=== PATIENT | female | born 1970 | race Caucasian/White ===

== ENCOUNTER → 2018-01-14 | Day surgery (SDC) | payer OTHER ==
[~2018-01-14] VITALS: Ht 162.6 cm; Wt 125.6 kg
[~2018-01-14] MED LIST: HYDROCHLOROTHIA25 M1 PO; LEVOTHYROXINE100 MC1 PO; LOPRESSOR50 M1 PO; MAGNESIUM400 M1 PO
[2018-01-14 07:43] LABS: ABSOLUTE BASOPHIL COUNT 0 /CUMM (0.0-0.2); ABSOLUTE EOSINOPHIL COUNT 0.4 /CUMM (0.0-0.7); ABSOLUTE GRANULOCYTE CT 4.3 /CUMM (1.4-6.5); ABSOLUTE LYMPH COUNT 2.8 /CUMM (1.2-3.4); ABSOLUTE MONOCYTE COUNT 0.6 /CUMM (0.10-0.60); BASOPHIL % 0.5 % (0.0-2.0); EOSINOPHIL % 4.6 % (0-5); GRANULOCYTE % 53.3 % (42.2-75.2); HEMATOCRIT 36.3 % (37-47); MEAN CORPUSCULAR HGB 29.2 PG (27.0-31.0); MEAN CORPUSCULAR HGB CONC 33.6 G/DL (33.0-37.0); MEAN CORPUSCULAR VOLUME 86.9 FL (81.0-99.0); MEAN PLATELET VOLUME 7.4 FL (7.4-10.4); PLATELET COUNT 312 /CUMM (130-400); RBC DISTRIBUTION WIDTH 15.2 % (11.5-14.5); RED BLOOD CELL CT 4.18 /CUMM (4.20-5.40); WHITE BLOOD CELL COUNT 8.1 /CUMM (4.8-10.8)
[2018-01-14 07:52] LABS: PT 11.7 SEC (9.4-12.5); PTT 26 SEC (25-37)
--- NOTE | 2018-01-14 11:30 | Operative Report ---
Operative/Inv Procedure Report Surgery Date: 01/14/18 Name of Procedure: Laparoscopic's tubal sterilization Pre-Operative Diagnosis: Multiparity Post-Operative Diagnosis: Same Estimated Blood Loss: 50ml to 100ml Surgeon/Grouter Helper: Lucia Stevens MD Anesthesia: general endotracheal tube, block Operative/Procedure Note Note: Gen. patient was taken the operating room placed on position after adequate induction general anesthesia tracheal tube patient placed in dorsolithotomy position the vagina from dorsal fashion bladder was catheterized examination under anesthesia performed at this point a single-tooth tenaculum was placed on the Intralipid cervix on the Rivas cannula was left in place surgeon regowned and gloved abdominal part case at the level of the umbilicus a stab incision was made to allow for the entry of Veress needle the abdomen was insufflated possibly 4 L of CO2 to liver edge dullness at which point the Veress needle was removed a 10 mm trocar was inserted atraumatically the umbilicus sheath remained placed through that sheath laparoscope placed under direct visualization a 5 mm trocar was placed 2 finger breadths of symptoms pubis in midline skin was cut on was carried down to rectus fascia and a 5 mm port was placed this point the right tube was picked up carried to its fimbriated end possibly 7 cm that tube Bovie coagulated left tube was picked up carried to its fimbriated end possibly symptoms that tube Bovie coagulated patient tolerated that well at this point maximal CO2 was removed from the abdomen the fascia at the umbilicus was oversewn using 0 the skin was reapproximated using 3 all interrupteds of both incisions Marcaine was injected underneath skin at the end of the case Rivas cannula was removed over some bleeding and Marcaine and all Monsel's was applied to the cervix patient follow that well patient was extubated after sterile dressings were placed and the patient was returned spine position and she was awakened from anesthesia and transferred recovery room awake alert counts correct Findings: Normal tubes and ovaries bilaterally otherwise normal anatomy normal uterus
== END ==
LOC: STS 01:07
PROVIDERS: Specialist
DX: Z30.2 Encounter for sterilization (principal); E03.9 Hypothyroidism, unspecified; I10 Essential (primary) hypertension; Z86.14 Personal history of Methicillin resistant Staphylococcus aureus infection
CPT/HCPCS: 36415; 81025; 93005; 93010; C9399; J0131; J2250; J3490